=== PATIENT | female | born 1970 | race Two or more races ===

== ENCOUNTER 2018-01-04 06:00 | Inpatient (IN) | payer BC ==
[2018-01-04] VITALS (10 sets, daily range): BP systolic 115–145; BP diastolic 70–91
[~2018-01-04] VITALS: Ht 152.4 cm; Wt 79.8 kg
[2018-01-04 07:20] LABS: BASOPHILS % (AUTO) 0.8 % (0.0-2.0); EOSINOPHILS % (AUTO) 2.1 % (0.0-6.0); HEMATOCRIT 43 % (33-45); HEMOGLOBIN 14.9 g/dL (11.5-14.8); LYMPHOCYTES # (AUTO) 1.8 /CMM (0.8-4.8); LYMPHOCYTES % (AUTO) 28.9 % (20.0-44.0); MEAN CORPUSCULAR HEMOGLOBIN 30 PG (26.0-33.0); MEAN CORPUSCULAR HGB CONC 35 g/dl (31.0-36.0); MEAN CORPUSCULAR VOLUME 86 fL (82-100); MONOCYTES # (AUTO) 0.4 /CMM (0.1-1.30); NEUTROPHILS # (AUTO) 3.8 /CMM (1.8-8.9); NEUTROPHILS % (AUTO) 62.2 % (43.0-81.0); PLATELET COUNT (AUTO) 244 /CMM (150-450); RED BLOOD CELL COUNT(AUTO) 4.95 MIL/uL (4.0-5.2); WHITE BLOOD COUNT (AUTO) 6.1 K/uL (4.3-11.0)
[2018-01-04] MEDS ORDERED: MIDAZOLAM HCL 2 MG/2ML VIAL ONE (07:28)
[2018-01-04] MEDS ORDERED: FENTANYL PF 100MCG/2ML AMPUL ONE (07:28)
[2018-01-04] MEDS ORDERED: ROCURONIUM BROMIDE 50 MG/5 ML ONE (07:28)
[2018-01-04] MEDS ORDERED: ANESTHESIA TRAY IN PYXIS 1 EA TRAY MC ONE (07:31)
[2018-01-04] MEDS ORDERED: SULFANILAMIDE VAG CR 120 GM TUBE VG ONE (08:15)
[2018-01-04] MEDS ORDERED: BUPIVACAINE MPF 0.5% W/EPI INJ 30 ML VIAL ONE (09:16)
[2018-01-04] MEDS ORDERED: HYDROMORPHONE INJ 2 MG/ML DISP.SYRIN ONE (09:57)
--- NOTE | 2018-01-04 11:00 | NUR ---
MS RN Initial notes Patient brought in to [facility] unit, transported by bed. Patient appears lethargic, able to open eyes voicing pain. On oxygen at 2L via NC, sat 97%, no shortness of breath. Lower mid abdominal incision, surgical mepilex in place, no bleeding. Bravo draining to gravity, SCD in place. VS continuous post op, afebrile. Maintained safety, family at the bedside. Will cont to monitor.
[2018-01-04] MEDS ORDERED: MORPHINE SULFATE INJ 4 MG/ML DISP.SYRIN IV PRN (12:00)
[2018-01-04] MEDS: IV D5 LR 1,000 ML IV PRN ×2 (12:23→21:47)
[2018-01-04] MEDS ORDERED: ACETAMINOPHEN W/ CODEINE#3 1 EA TABLET PO PRN (12:30)
--- NOTE | 2018-01-04 14:24 | NUR ---
Informed Dr. Miller, admitting. Called spoke with Jerry Schwarz clarified written orders "call Hospitalist" per Dr. Benavides call him "only" for questions and orders. Will endorse to oncoming RN.
[2018-01-04] MEDS ORDERED: LEVO50TA8 PO (16:17)
[2018-01-04] MEDS: DOCUSATE SODIUM 100 MG CAPSULE PO SCH (16:22)
--- NOTE | 2018-01-04 18:28 | NUR ---
MS RN Closing notes Patient is awake, A/O x4. Breathing on room air, denies shortness of breath. Abdominal incision, dressing clean and dry. Incisional pain well managed by PRN IV morphine, and discomfort only when moves as per patient. On clears diet, tolerating well, continued on IVF as ordered. Bravo cath to gravity, will D/C remove in am as ordered. Will endorse to oncoming RN. Call light within reach, mother at the bedside.
--- NOTE | 2018-01-04 19:10 | NUR ---
RN Notes Received pt awake, alert and oriented x4. HOB elevated, on room air and tolerated well. Surgical incision on lower mid abdomen covered with mepilex. Pain at tolerable level at this time. On clear liquids and tolerated well. IV access patent and intact with ongoing IVF infusing well. Plan od care discussed with the pt and family and verbalized understanding. Safety measures and fall precaution observed. Will continue to monitor pt.
[2018-01-04] MEDS: KETOROLAC TROMETHAMINE INJ 30 MG/ML VIAL IV SCH (21:38)
[2018-01-05] VITALS: BP 112/64
[2018-01-05] MEDS: IV D5 LR 1,000 ML IV PRN (05:44)
[2018-01-05 06:17] LABS: BASOPHILS % (AUTO) 0.2 % (0.0-2.0); EOSINOPHILS % (AUTO) 0.1 % (0.0-6.0); HEMATOCRIT 39 % (33-45); HEMOGLOBIN 12.8 g/dL (11.5-14.8); LYMPHOCYTES # (AUTO) 1.5 /CMM (0.8-4.8); LYMPHOCYTES % (AUTO) 13.6 % (20.0-44.0); MEAN CORPUSCULAR HEMOGLOBIN 30 PG (26.0-33.0); MEAN CORPUSCULAR HGB CONC 33 g/dl (31.0-36.0); MEAN CORPUSCULAR VOLUME 90 fL (82-100); MONOCYTES # (AUTO) 0.6 /CMM (0.1-1.30); MONOCYTES % (AUTO) 6.1 % (2.0-12.0); NEUTROPHILS # (AUTO) 8.6 /CMM (1.8-8.9); PLATELET COUNT (AUTO) 226 /CMM (150-450); RDW COEFFICIENT OF VARIATION 12.9 (11.5-15.0); WHITE BLOOD COUNT (AUTO) 10.7 K/uL (4.3-11.0)
[2018-01-05 06:24] LABS: ALBUMIN 2.7 g/dL (3.4-5.0); BILIRUBIN,TOTAL 0.6 mg/dL (0.2-1.0); CREATININE 0.9 mg/dL (0.6-1.3); POTASSIUM 3.8 mmol/L (3.5-5.1); TOTAL PROTEIN, SERUM 6.1 g/dL (6.4-8.2)
--- NOTE | 2018-01-05 06:27 | NUR ---
RN Notes Pt slept well overnight, vital signs stable. Kept pain at tolerable level with current regimen. Clear liquid diet tolerated well, no episode of nausea and vomiting. Bravo catheter removed at 0600. Encouraged use of tri ujdith and ambulate as tolerated. All needs attended. Safety measures and fall precaution observed. Will endorse to morning RN for continuity of care.
--- NOTE | 2018-01-05 07:12 | NUR ---
MS RN NOTES PATIENT IN BED ALERT ORIENTED X 4. NO ACUTE DISTRESS NOTED. BREATHING UNLABORED. NO SOB NOTED. DENIED ANY PAIN. IV ACCESS PATENT AND INTACT, NO REDNESS OR SWELLING NOTED. SAFETY MEASURES IN PLACE.CALL LIGHT WITHIN REACH. WILL CONTINUE TO MONITOR ACCORDINGLY.
[2018-01-05 08:00] VITALS: BP 121/95
[2018-01-05] MEDS: LEVOTHYROXINE SODIUM 50 MCG TABLET PO SCH (08:26)
[2018-01-05] MEDS: DOCUSATE SODIUM 100 MG CAPSULE PO SCH ×2 (08:28→17:18)
[2018-01-05] MEDS: KETOROLAC TROMETHAMINE INJ 30 MG/ML VIAL IV SCH ×2 (08:29→20:54)
--- NOTE | 2018-01-05 09:15 | NUR ---
MS RN NOTES PATIENT VOIDED X 2 . NO S/SX OF URINARY RETENTION NOTED.
--- NOTE | 2018-01-05 15:02 | NUR ---
MS RN NOTES RECEIVED NEW ORDERS FROM DR WRAY WITH ORDERS TO CHANGE DIET TO REGULAR AND DISCONTUE IVF [id number]. NOTED AND CARRIED OUT.
--- NOTE | 2018-01-05 15:45 | NUR ---
MS RN NOTES SEEN AND EVALUATED BY DR WRAY, DRESSING REMOVED BY AND CHANGED.
[2018-01-05 15:51] VITALS: BP 124/67
--- NOTE | 2018-01-05 18:55 | NUR ---
MS RN NOTES PATIENT IN BED ALERT ORIENTED X4. NO ACUTE DISTRESS NOTED. BREATHING UNLABORED. NO SOB NOTED. DENIED ANY PAIN. IV ACCESS PATENT AND INTACT, NO REDNESS OR SWELLING NOTED. DUE MEDICATIONS GIVEN., NO ASE NOTED. KEPT CLEAN, DRY AND COMFORTABLE. NEEDS ATTENDED AND ANTICIPATED SAFETY MEASURES IN PLACE.CALL LIGHT WITHIN REACH. WILL ENDORSE TO NIGHT NURSE TO CONTINUITY OF CARE.
--- NOTE | 2018-01-05 19:30 | NUR ---
MS/RN RECEIVE PATIENT AWAKE, ALERT, ORIENTED, COMFORTABLE, NO C/O PAIN, NO DISTRESS NOTED, CALL LIGHT IN REACH. WILL MONITOR.
[2018-01-05 20:13] VITALS: BP 122/74
--- NOTE | 2018-01-06 01:38 | NUR ---
MS/RN PATIENT IS SLEEPING, EASILY AROUSABLE, APPEAR COMFORTABLE, NO SIGNS OF DISTRESS NOTED, CALL LIGHT IN REACH. WILL CONTINUE TO MONITOR.
--- NOTE | 2018-01-06 06:16 | NUR ---
MS/RN PATIENT IS SLEEPING AT THIS TIME, APPEAR COMFORTABLE, BREATHING EVEN AND UNLABORED, CALL LIGHT IN REACH. ALL NEDS ATTENDED AT THIS TIME. WILL CONTINUE TO MONITOR.
--- NOTE | 2018-01-06 07:10 | NUR ---
MS RN NOTES PATIENT IN BED ALERT ORIENTED X 4. FAMILY AT BEDSIDE. NO ACUTE DISTRESS NOTED. BREATHING UNLABORED. NO SOB NOTED. DENIED ANY PAIN. IV ACCESS PATENT AND INTACT, NO REDNESS OR SWELLING NOTED. SAFETY MEASURES IN PLACE.CALL LIGHT WITHIN REACH. WILL CONTINUE TO MONITOR ACCORDINGLY.
[2018-01-06 08:00] VITALS: BP 138/78
[2018-01-06] MEDS: DOCUSATE SODIUM 100 MG CAPSULE PO SCH (08:22)
[2018-01-06] MEDS: LEVOTHYROXINE SODIUM 50 MCG TABLET PO SCH (08:22)
[2018-01-06] MEDS: KETOROLAC TROMETHAMINE INJ 30 MG/ML VIAL IV SCH (08:23)
--- NOTE | 2018-01-06 10:33 | NUR ---
MS PERSONAL FINANCIAL ADVISOR NOTES SEEN AND EVALUATED BY BRYSON WITH NEW ORDERS MADE. NOTED AND CARRIED OUT.
--- NOTE | 2018-01-06 13:36 | NUR ---
MS RN NOTES SEEN AND EVALUATED BY DR HUA WRAY, BRENT REMOVED AND PLACED STRI STRIPS BY DR WRAY. PATIENT CLEARED FOR DISCHARGED.
--- NOTE | 2018-01-06 16:15 | NUR ---
MS CUSTOMER ACCOUNT SPECIALIST NOTES PATIENT DISCHARGED HOME WITH STABLE VITAL SIGNS. NO ACUTE DISTRESS NOTED. BREATHING UNLABORED. DENIED ANY PAIN. DISCHARGE INSTRUCTIONS GIVEN TO THE PATIENT INCLUDING FOLLOW UP APPOINTMENT AND NEW PRESCRIPTION, VERBALIZED UNDERSTANDING. ALL BELONGINGS ACCOUNTED FOR. NEEDS ATTENDED AND ANTICIPATED. SURGERY SITE IN THE ABDOMEN CLEAN AND DRY, NO S/SX OF INFECTION NOTED. WHEELED TO THE LOBBY. ASSISTED TO A PRIVATE CAR WITH THE MOTHER.
== END 2018-01-06 16:00 | disposition home or self-care (01) | DRG 743 ==
LOC: DS 06:00 → MED 11:07
PROVIDERS: ADMIT Obstetrics & Gynecology; ATTEND Internal Medicine
PROC: 0UT90ZZ Resection of Uterus, Open Approach (ICD-10-PCS; principal; 2018-01-04 07:30)
DX: D25.9 Leiomyoma of uterus, unspecified (principal); N92.1 Excessive and frequent menstruation with irregular cycle; E03.9 Hypothyroidism, unspecified; E11.65 Type 2 diabetes mellitus with hyperglycemia; N83.02 Follicular cyst of left ovary
CPT/HCPCS: 36415; 80053-TC; 82962-TC; 84703-TC; 85025-TC; 86850-TC; 86921-TC; 87081-TC; 88307-TC; A6209; J0690; J1100; J1170; J1885; J2250; J2270; J2704; J2710; J3010; J3490

== ENCOUNTER 2018-01-12 14:32 | Outpatient (CLI) | payer BC ==
[~2018-01-12 14:32] MED LIST: LEVO50TA8 PO
== END 2018-01-12 23:59 | disposition home or self-care (01) ==
LOC: MSC 14:32
PROVIDERS: ATTEND Internal Medicine
DX: Z09 Encounter for follow-up examination after completed treatment for conditions other than malignant neoplasm (principal); Z90.711 Acquired absence of uterus with remaining cervical stump; E11.9 Type 2 diabetes mellitus without complications; E03.9 Hypothyroidism, unspecified; E66.8 Other obesity; Z79.899 Other long term (current) drug therapy